=== PATIENT | female | born 1995 | race Caucasian/White ===

== ENCOUNTER 2024-11-03 14:37 | Observation (INO) | payer MEDICAID, SELFPAY ==
[2024-11-03] VITALS (29 sets, daily range): BP systolic 101–130; BP diastolic 62–77; PULSE 73–100; RESP 18–98; TEMP 36.9–37.1; O2SAT 95–98; BMI 30.4
--- NOTE | 2024-11-03 15:16 | XR_ITS ---
Examination: Biophysical profile, ultrasound Date and time of exam: November 03, 2024 1546 hours INDICATIONS: Patient fell today with decreased movement Technique: Multiple transabdominal sonographic images of the pelvis abdomen obtained. Attention is directed to the breathing movement, gross body movement, amniotic fluid volume and tone. Findings: Amniotic fluid index 14.9 cm Total biophysical profile is 8 of 8. breathing movement is 2. Gross body movement is 2. tone is 2. Qualitative amniotic fluid volume is 2 Impression: Biophysical profile is 8 of 8.
--- NOTE | 2024-11-03 15:17 | XR_ITS ---
Examination: Complete OB ultrasound greater than 14 weeks Date and time of exam: November 03, 2024 1533 hours INDICATIONS: Patient fell today with decreased movement Findings: Viable intrauterine single fetus with single amniotic sac presentation cephalic Cardiac motion 131 BPM Placenta posterior grade 2 Umbilical cord insertion 3 vessel seen Amniotic fluid index 14.4 cm spine maternal right Cervix 3.1 cm Ovaries obscured by bowel gas. Composite estimated gestational age based on BPD, head circumference, abdominal circumference, femur length is 35 weeks 6 days Estimated weight 2823 g. Survey of intracranial anatomy, spinal anatomy, abdominal anatomy, four-chamber heart performed with no abnormalities identified. Impression: Viable intrauterine gestation cephalic presentation No placental abruption.
[2024-11-03 15:52] LABS: ROM Kit Lot # 57809118; ROM Swab Mixed By: YOUNB; Swb Mxed in Solvent 1 min? Yes
[2024-11-03 15:53] LABS: Rupture of Fetal Membranes Negative (Negative)
--- NOTE | 2024-11-03 17:38 | PC.NURSE ---
Patient discharged home with significant other. Vitals wnl, nst reactive. BPP 04/29. Patient now states she feels baby moving more since coming to hospital and pain score changed from a 3 to a 0. Discharge education discussed with patient and partner including precautions and reasons to return to hospital. Patient instructed to follow up with horse shoer at next scheduled appt on 11/10/24. Patient verbalizes understanding, all questions answered and encouraged.
== END 2024-11-03 17:29 | disposition home or self-care (01) ==
PROVIDERS: Admitting Provider Obstetrics & Gynecology; Visit Provider Obstetrics & Gynecology
DX: O36.8130 Decreased fetal movements, third trimester, not applicable or unspecified (principal); Z3A.35 35 weeks gestation of pregnancy
CPT/HCPCS: 59025; 59899; 76805; 76819; 84112

== ENCOUNTER 2024-11-24 02:42 | Observation (INO) | payer MEDICAID, SELFPAY ==
[2024-11-24 02:57] VITALS: BP 109/63; PULSE 83; RESP 18; RESP 98; TEMP 36.7
[2024-11-24 03:18] VITALS: BMI 32.1
[2024-11-24 03:19] VITALS: TEMP 36.7
[2024-11-24] MEDS: hydrOXYzine HCL 25 MG TABLET 50 MG PO (04:23)
== END 2024-11-24 04:30 | disposition home or self-care (01) ==
PROVIDERS: Admitting Provider Student in an Organized Health Care Education/Training Program; Visit Provider Student in an Organized Health Care Education/Training Program
DX: O47.1 False labor at or after 37 completed weeks of gestation (principal); Z3A.37 37 weeks gestation of pregnancy
CPT/HCPCS: 59025; 59899; A9270

== ENCOUNTER 2024-12-12 19:58 | Inpatient (IN) | payer MEDICAID, SELFPAY ==
[2024-12-12] VITALS (7 sets, daily range): BP systolic 94–111; BP diastolic 52–59; PULSE 72–84; RESP 18; TEMP 36.6; BMI 35.2
--- NOTE | 2024-12-12 20:43 | XR_ITS ---
Examination: age limited: TECHNIQUE: Limited transabdominal sonographic images pelvis Exam date time: December 12, 2024 2056 hours INDICATIONS: Labor induction today, unknown presentation FINDINGS: Viable intrauterine gestation cephalic presentation spine anterior. Estimated weight 3820 g Cardiac motion 145 bpm IMPRESSION: Viable intrauterine gestation cephalic presentation
[2024-12-12 20:48] LABS: Basophils % (Auto) 0 % (0-2.5); Eosinophils # (Auto) 0.2 Thou/mm3 (0.0-0.5); Eosinophils % (Auto) 2 % (0-10); Hematocrit 31.2 % (36.0-46.0); Immature Granulocytes % (Auto) 3 % (0-0); Immature Granulocytes Auto 0.37 Thou/mm3 (0.00-0.00); Lymphocytes # (Auto) 1.9 Thou/mm3 (1.0-4.8); Lymphocytes % (Auto) 14 % (10-50); Mean Corpuscular HGB Conc 35.3 g/dl (31.0-37.0); Mean Corpuscular Hemoglobin 32.5 pg (25.0-35.0); Mean Corpuscular Volume 92 fL (80-100); Monocytes # (Auto) 1.2 Thou/mm3 (0.0-0.8); Monocytes % (Auto) 8 % (0-12); Neutrophils # (Auto) 10.1 Thou/mm3 (1.8-7.7); Neutrophils % (Auto) 73 % (37-80); Nucleated Red Blood Cell % 0 /100 WBC (0); Platelet Count 259 Thou/mm3 (140-440); RDW Standard Deviation 46.6 fL (36.4-46.3); Red Blood Count 3.38 Miln/mm3 (4.00-5.20); White Blood Count 13.8 Thou/mm3 (3.6-11.0)
[2024-12-12] MEDS: RINGERS LACTATED 1000 ML 1,000 ML 125 ML IV (20:54)
[2024-12-12 21:23] LABS: Syphilis Nonreactive (Nonreactive)
[2024-12-12] MEDS: MISOPROSTOL 50 mCg TABLET PO (21:47)
--- NOTE | 2024-12-12 22:27 | PD.LDHP ---
Documentation for date of: 12/12/24 OB Labor/Induct. HPI History of Present Illness : 5 Term pregnancies: 3 pregnancies: 0 Living children: 3 History of Abortions: Spontaneous and Elective: 1 History of Vaginal deliveries: 3 History of sections: No History of : No Date of last menstrual period: 02/12/24 TAMEKA: 12/09/24 Gestational Age (weeks): 40 Gestational Age (days): 3 Gestational age based on last menstrual period: 43 Indication for induction: post dates History of present illness: The patient is a 29-year-old -0-1-3 who presents for scheduled induction of labor secondary to postdates. All care uncomplicated with family [facility] History of Present Dating criteria: LMP confirmed by 1st trimester US Adequate Care: Yes Ultrasounds: normal mid trimester US Obstetrical complications: none Medical complications: none Labs Maternal Blood Type: O Pos Labs: Positive: Rubella Titre and Negative: RPR, Hepatitis B, HIV, Chlamydia, Gonorrhea and Group Beta Strep Past Medical History Surgical History SURGICAL: Negative Section Meds Home Medications and Allergies Home Medications ?Medication ?Instructions ?Recorded ?Confirmed ?Type vit no.95-ferrous 1 tab PO QDAY 06/05/22 11/03/24 History fumarate 28 mg-folic acid 800 mcg tablet () ferrous sulfate 325 mg (65 mg 325 mg PO QDAY 11/03/24 11/03/24 History iron) tablet (FeroSul) folic acid 1 mg tablet 1 mg PO QDAY 11/03/24 11/03/24 History Allergies Allergy/AdvReac Type Severity Reaction Status Date / Time No Known Allergies Allergy Verified 11/03/24 15:21 OB Exam Physical Exam Vital signs: Temp Pulse Resp BP 98 F 81 18 94/52 L 12/12/24 19:50 12/12/24 22:10 12/12/24 19:50 12/12/24 22:10 Routine Abdominal Exam Abdominal: Present soft Detailed Labor and Delivery Exam Dilation (cm): 1 Effacement (%): 50 Cervix position: posterior station: -2 Consistency: firm Presentation: Vertex Membranes: intact monitor accelerations: 15x15 monitor decelerations: None FPC variability: Moderate (11-25) Contraction frequency (min): Irregular Tachysystole: No Contraction intensity: Mild OB Results Labs 12/12/24 20:10 Labs: Short CBC 12/12/24 Range/Units 20:10 WBC 13.8 H (3.6-11.0) Thou/mm3 Hgb 11.0 L (12.0-16.0) g/dL Hct 31.2 L (36.0-46.0) % Plt Count 259 (140-440) Thou/mm3 OB Assessment & Plan Assessment and Plan (1) Post-dates : Status: Acute Assessment and plan: Admit for Cytotec induction for postdates (1) Post-dates Qualifiers: Post-term type: 40-42 weeks gestation Qualified Code(s): O48.0 - Post-term
[2024-12-13] VITALS (101 sets, daily range): BP systolic 77–126; BP diastolic 42–74; PULSE 56–80; RESP 16–18; TEMP 36.6–37; O2SAT 92–98
[2024-12-13] MEDS: MISOPROSTOL 50 mCg TABLET PO ×3 (01:50→10:02)
[2024-12-13] MEDS: RINGERS LACTATED 1000 ML 1,000 ML 125 ML IV ×3 (02:17→23:29)
--- NOTE | 2024-12-13 06:41 | PD.LDPN ---
Documentation for date of: 12/13/24 OB Labor Progress Note Pain Control Pain control: tolerating well Comments: Breathing through contractions Pelvic Exam Dilation (cm): 1 Effacement (%): 80 station: -2 Amniotic membrane status: Intact Comments: Patient just examined by RN Contractions Monitor mode: External Contraction frequency: every 3 min Contraction intensity: Moderate Status status: Category l Comments: heart tones and contraction pattern reviewed Assessment and Plan Assessment: induction ongoing Comments: Patient's just had her third dose of misoprostol 50 mcg at 6 AM. Probable AROM in 4 hours if no progress. Can consider Pitocin augmentation at that point.
--- NOTE | 2024-12-13 08:40 | PD.LDPN ---
Documentation for date of: 12/13/24 OB Labor Progress Note Pelvic Exam Dilation (cm): 1 Effacement (%): 80 station: -2 Amniotic membrane status: Intact Contractions Monitor mode: External Contraction frequency: every 3 min Contraction intensity: Moderate Status status: Category l Assessment and Plan Comments: Taken over care from overnight on-call MD Patient currently being induced for late term . She is status post 3 doses of misoprostol. Last cervical exam was 1/80/high contractions every 3 minutes. Category 1 heart rate tracing. Assessment and plan Continue current plan. Continue continuous monitoring. Will proceed to oxytocin when Monsalve score is favorable.
[2024-12-13] MEDS: OXYTOCIN in NS 30 units 30 UNIT/500 ML BAG IV (14:16)
[2024-12-13] MEDS: fentaNYL CIT INJ 50 mCg/ML AMP 2ML 100 MCG IV (17:05)
[2024-12-14] VITALS (309 sets, daily range): BP systolic 80–137; BP diastolic 47–94; PULSE 59–85; RESP 16–18; TEMP 36.7–37.1; O2SAT 86–100
[2024-12-14] MEDS: RINGERS LACTATED 1000 ML 1,000 ML 125 ML IV ×2 (06:34→12:19)
[2024-12-14] MEDS: OXYTOCIN in NS 30 units 30 UNIT/500 ML BAG IV (11:07)
[2024-12-14] MEDS: MINERAL OIL 30 ML UDC TOP (14:45)
[2024-12-14] MEDS: IBUPROFEN TAB 400 MG TABLET 800 MG PO (16:17)
[2024-12-14] MEDS: OXYTOCIN in NS 30 units 30 UNIT/500 ML BAG 5 UNIT IV (16:23)
[2024-12-15] MEDS: IBUPROFEN TAB 400 MG TABLET 800 MG PO ×2 (00:26→08:47)
--- NOTE | 2024-12-15 03:37 | OBDSUM_ITS ---
Vacuum Assisted Delivery General Patient Counseled by physician:: Yes Informed consent to patient:: Yes Estimated weight:: 3628.739 g Cervical dilation:: fully dilated station:: +3 position:: JAMIAL Molding:: No Caput:: No Vacuum Application Vacuum type:: Mityvac Vacuum application:: flexing median Total vacuum time (min):: 1 Maximum pressure (cm Hg):: 45 Cup Placement Flexion point identified:: Yes Cup approp. for head position:: Yes Maternal tissue excluded:: Yes Vacuum Procedure Number of pulls (contractions):: 1 Number of pop-offs:: 0 Recommended range maintained:: Yes Vacuum reduced between pulls:: Yes Advancement made each pull:: Yes Vacuum successful:: Yes Immediate [place] Evaluation Immediate assessment:: no apparent injury Data (Marsh) Data Hx Section: No : 5 Para: 3 Term: 3 : 0 : 1 Delivery Data (Marsh) Labor Data Stimulated/Augmented: Yes Induction: Yes Method: Oxytocin ROM Date: 12/14/24 ROM Time: 09:00 Rupture Type: AROM Delivery Data Labor Onset Stage 1 Date: 12/14/24 Labor Onset Stage 1 Time: 14:17 Labor Onset Stage 2 Date: 12/14/24 Labor Onset Stage 2 Time: 14:17 Delivery Date: 12/14/24 Delivery Time: 14:58 Placenta Delivery Date: 12/14/24 Placenta Delivery Time: 15:01 Delivered by: Shaheen Soares Delivery nurse: Jossy Gil Other staff at delivery: 2nd Nurse Other staff at delivery: Binta Corona Delivery Method Delivery: Vaginal Delivery Type: Vacuum Assisted Presentation: Vertex Anesthesia Type Primary Anesthesia: Epidural Delivery Room Medications Other Intrapartum Medications: Yes Placenta Placenta Delivery: Spontaneous Cord Sample: Cord Blood Obtained Umbilical Cord Umbilical Vessels: 3 Nuchal Cord: None Data (Marsh) [place] Data Gender: Female Identification Band Number: [id number] Weight Grams: 3630 1 Minute Total: 9 5 Minute Total: 9
[2024-12-15 03:44] VITALS: BP 95/56; RESP 16; TEMP 36.7; O2SAT 97
[2024-12-15 06:32] LABS: Basophils % (Auto) 0 % (0-2.5); Eosinophils % (Auto) 0 % (0-10); Hematocrit 32.2 % (36.0-46.0); Hemoglobin 11.2 g/dL (12.0-16.0); Immature Granulocytes % (Auto) 1 % (0-0); Lymphocytes # (Auto) 1.8 Thou/mm3 (1.0-4.8); Lymphocytes % (Auto) 9 % (10-50); Mean Corpuscular HGB Conc 34.8 g/dl (31.0-37.0); Mean Corpuscular Hemoglobin 30.2 pg (25.0-35.0); Mean Corpuscular Volume 87 fL (80-100); Monocytes # (Auto) 0.9 Thou/mm3 (0.0-0.8); Monocytes % (Auto) 5 % (0-12); Neutrophils # (Auto) 16.5 Thou/mm3 (1.8-7.7); Neutrophils % (Auto) 85 % (37-80); Nucleated Red Blood Cell % 0 /100 WBC (0); Platelet Count 209 Thou/mm3 (140-440); RDW Standard Deviation 41.3 fL (36.4-46.3); Red Blood Count 3.71 Miln/mm3 (4.00-5.20); White Blood Count 19.3 Thou/mm3 (3.6-11.0)
--- NOTE | 2024-12-15 07:23 | PD.LDDS ---
DS: Providers Provider Date of admission: 12/12/24 19:58 Primary care physician: Physician No Primary/Family Admitting Provider: Noelle Ramirez MD ([facility]) Attending Provider on Admission: Shaheen Soares MD Consults: 12/14/24 16:27 Referral Routine Comment: Attending Provider on DC: Katerina Carrera CNM Discharging Provider: Katerina Carrera CNM Anticipated date of discharge: 12/15/24 DS: Diagnosis Discharge Diagnosis (1) care and examination immediately after delivery: Status: Acute (2) Vacuum-assisted vaginal delivery: Status: Acute Problem List Completed Was Problem List Reviewed/Reconciled?: Yes Summary/Hosp Course Brief History: The patient is a 29-year-old -0-1-3 who presents for scheduled induction of labor secondary to postdates. All care uncomplicated with [facility] 12/15/24: PPD#1 and afebrile. Doing well and . Denies dizziness shortness of breath. Reports some cramping while breast-feeding. Bonding well with . Uterus is nontender fundus firm minimal lochia. Discharge instructions given. Patient to follow-up with Katerina Carrera CNM in 3 weeks Peripartum Data Delivery Method: Operative Vaginal Delivery Laceration Description: see Delivery Summary complications: none [place] 1: Gender: Female Disposition of : home Status at Discharge Cognitive/behavioral status at discharge: Alert and oriented times Functional status at discharge: independent ambulation Overall status at discharge: patient is progressing back to baseline Time Spent with Patient Time attestation: Total time spent providing and/or coordinating discharge services: Time spent: Greater than 30 minutes Exam Vital Signs Temp Pulse Resp BP Pulse Ox O2 Del Method 98.0 F 72 16 95/56 L 97 Room Air 12/15/24 03:44 12/14/24 16:18 12/15/24 03:44 12/15/24 03:44 12/15/24 03:44 12/15/24 03:44 Constitutional Constitutional: no acute distress Routine HEENT Exam Head: Present normocephalic and atraumatic Eye: Present EOMI, PERRL and normal accommodation ENT: Present mucous membranes moist Routine Neck Exam Neck: Present supple, full ROM and trachea midline Routine Respiratory Exam Respiratory: Present chest non-tender, lungs clear, normal breath sounds and no resp distress Routine Cardiovascular Exam Cardiovascular: Present RRR Routine Abdominal Exam Abdominal: Present soft and normoactive bowel sounds; Absent tenderness or distended Comments: Uterus nontender Fundus firm Routine Exam Patient deferred: external exam Routine Extremities Exam Extremities: Present full ROM, pulses intact and normal capillary refill; Absent calf tenderness or tenderness Routine Back/Spine/Pelvis Exam Back/Spine: Present full ROM Routine Skin Exam Skin: Present intact, dry and warm Routine Neurological Exam Neurological: Present alert, oriented X3 and CN II-XII intact Routine Psychiatric Exam Psychiatric: Present normal affect and normal thought process Discharge Plan Plan Patient Disposition: HOME (Self Care) Patient condition on transfer: Stable Prescriptions/Referrals Prescriptions/Med Rec: New ibuprofen 400 mg Tablet 800 mg PO Q6H PRN (Reason: Pain Scale 4-6 (Moderate) 10 Days Qty: 40 0RF docusate sodium 100 mg Capsule 100 mg PO QDAY 10 Days Qty: 10 0RF lanolin 50 % ointment 1 applic topical TID PRN (Reason: skin irritation) Qty: 15 0RF Continued PNV cmb#95-ferrous fumarate-FA [] 28 mg iron- 800 mcg tablet 1 tab PO QDAY Patient Comments: TAKE 1 TABLET BY MOUTH ONCE DAILY ferrous sulfate [FeroSul] 325 mg (65 mg iron) tablet 325 mg PO QDAY folic acid 1 mg tablet 1 mg PO QDAY Referrals: No Primary/Family,Physician [Primary Care Provider] - Katerina Carrera CNM [Certified Nurse Online Advertising Director] - (Within 2-6 weeks) Patient/Caregiver Discharge Instructions Meds to Beds: Yes Discharge Activity: activity as tolerated Other Discharge Activity Instructions:: Katerina Carrera CNM in 3 weeks Education Materials: After a Vaginal , After Delivery Concerns, Feel Healthy After Print Language: German Stand Alone Forms: [employer] Award Info., Patient Portal Info Letter Discharge Order Discharge Orders: Discharge (Routine); Ordered 12/15/24 Ordered By: Katerina Carrera Planned Discharge Date 12/15/24
[2024-12-15 08:35] VITALS: BP 100/66; PULSE 78; RESP 16; TEMP 36.9; O2SAT 97
[2024-12-15] MEDS: DOCUSATE SOD 100 MG CAPSULE PO (08:47)
[2024-12-15 12:00] VITALS: BP 104/67; PULSE 71; RESP 17; TEMP 37.1
== END 2024-12-15 17:05 | disposition home or self-care (01) | DRG 560 ==
LOC: S4SX 12-13 13:29 → S4NX 12-14 17:05
PROVIDERS: Admitting Provider Obstetrics & Gynecology; Visit Provider Obstetrics & Gynecology
DX: O48.0 Post-term pregnancy (principal); Z37.0 Single live birth; Z3A.40 40 weeks gestation of pregnancy
CPT/HCPCS: 36415; 76815; 85025; 86780; 86850; 86900; 86901; J2590; J2795; J3010; J7120; A9270